=== PATIENT | male | born 1980 | race Caucasian/White ===

== ENCOUNTER 2016-12-01 09:41 | Emergency (ER) | payer OTHER ==
[~2016-12-01] VITALS: Ht 177.8 cm; Wt 89.8 kg
--- NOTE | 2016-12-01 09:50 | ED GENERAL ADULT ---
History of Present Illness General Chief Complaint: General Adult Stated Complaint: BIBA, R FLANK PAIN Source: patient Exam Limitations: no limitations Vital Signs & Intake/Output Vital Signs & Intake/Output Vital Signs Date Time Temp Pulse Resp B/P Pulse O2 O2 Flow FiO2 Ox Delivery Rate 12/01 1112 98.9 80 18 140/77 96 Room Air 12/01 0945 98.1 81 18 142/93 96 Room Air Allergies Coded Allergies: NO KNOWN ALLERGIES (07/30/11) Reconcile Medications Cyclobenzaprine HCl 10 MG TABLET 1 TAB PO TID PRN MUSCLE RELAXANT MAY CAUSE DROWSINESS Meloxicam (Mobic) 15 MG TABLET 1 TAB PO DAILY PRN PAIN/INFLAMMATION Tramadol HCl 50 MG TABLET 1-2 TAB PO Q6 PRN pain Triage Note: 36 Y/O MALE BIBA FROM WORK FOR EVAL OF R SIDED FLANK PAIN RADIATING INTO R GROIN AND R LEG; ONSET THIS AM WHILE AT WORK. STATES IT WAS "SUDDEN" ONSET AFTER "CLIMBING INTO A MACHINE". STATES HE VOIDED THIS AM AND DENIES NOTING HEMATURIA; FELT THOUGH HE EMPTIED HIS BLADDER. RECEIVED 2 DOSES MORPHINE [facility] - TOTAL OF 10MG MORPHINE EN ROUTE. C/O NAUSEA AFTER PAIN MEDICATION BUT DENIES NAUSEA PRIOR TO RECEIVING MEDS. AWAITING EVAL. Triage Nurses Notes Reviewed? yes HPI: Patient is a 36 year old male presents complaining of sharp low back pain onset while at work. Patient was using a machine and lifting 50 pounds when he had a sudden onset of right sharp low back pain that radiates into the right inguinal area and down the right anterior thigh. Pain is moderate at rest, severe with movement. Some improvement with morphine administered by EMS prior to arrival. Mild paresthesias in right anterior thigh since onset of pain. Patient had mild burning with urination after onset of symptoms. Denies fall, fevers, chills, incontinence, numbness in the rectal area. (DANIELLE DAMON,[place]) Past History Travel History Traveled to [place] past 21 day No Medical History Any Pertinent Medical History? see below for history Neurological: NONE EENT: NONE Cardiovascular: NONE Respiratory: NONE Gastrointestinal: HERNIA SURGERY Hepatic: NONE Renal: NONE Musculoskeletal: NONE Psychiatric: NONE Endocrine: NONE Blood Disorders: NONE Cancer(s): NONE FORMAL SERVICE WAITER/Reproductive: NONE Surgical History Surgical History: non-contributory Psychosocial History What is your primary language Colombian Tobacco Use: Quit >30 days ago Family History Hx Contributory? No (ERICA MATHEWS) Review of Systems Review of Systems Constitutional: Denies: chills, fever. EENTM: Reports: no symptoms. Respiratory: Reports: no symptoms. Cardiovascular: Reports: no symptoms. GI: Denies: abdominal pain, nausea, vomiting. Genitourinary: Reports: see HPI. Musculoskeletal: Reports: see HPI. Skin: Reports: no symptoms. Neurological/Psychological: Reports: paresthesia (right anterior thigh). Hematologic/Endocrine: Reports: no symptoms. Immunologic/Allergic: Reports: no symptoms. (ERICA MATHEWS) Physical Exam Physical Exam General Appearance: well developed/nourished, alert, awake Head: atraumatic, normal appearance Eyes: Bilateral: normal appearance, PERRL, EOMI. Ears, Nose, Throat: normal pharynx, normal ENT inspection, hearing grossly normal Neck: normal inspection, supple, full range of motion Respiratory: normal breath sounds, no respiratory distress, lungs clear Cardiovascular: regular rate/rhythm Peripheral Pulses: 2+ dorsalis pedis (R) Gastrointestinal: soft, non-tender, no palpable pulsatile masses Back: point tenderness right lumbar paraspinal muscles in the area of L3, Positive left straight leg raise at 30 degrees. Extremities: normal inspection, normal capillary refill, normal range of motion, no edema Neurologic/Psych: no motor/sensory deficits, awake, alert, oriented x 3, mild antalgic gait. Skin: intact, normal color, warm/dry Core Measures ACS in differential dx? No CVA/TIA Diagnosis: No Severe Sepsis Present: No Septic Shock Present: No (ERICA MATHEWS) Progress Differential Diagnoses I considered the following diagnoses in my evaluation of the patient: muscle strain, herniated disc, renal colic, UTI/pyelo, transverse myelitis, AAA Plan of Care: Orders Procedure Date/time Status URINALYSIS 12/01 0954 Complete Laboratory Tests 12/01/16 1004: Urine Color YEL, Urine Clarity CLEAR, Urine pH 6.0, Ur Specific [facility] 1.025, Urine Protein 30 H, Urine Ketones NEG, Urine Nitrite NEG, Urine Bilirubin NEG, Urine Urobilinogen 0.2, Ur Leukocyte Esterase NEG, Ur Microscopic SEDIMENT EXAMINED, Urine RBC RARE, Urine WBC RARE, Urine Hemoglobin NEG, Urine Glucose NEG 12/01/2016 10:34:06 AM: Patient reports moderate improvement after Toradol and Valium. Exam appears consistent with musculoskeletal etiology. Low suspicion renal colic given exam and no significant hematuria. Imaging deferred. (ERICA MATHEWS) Initial ED EKG: none (ERICA MATHEWS) Departure Departure Time of Disposition: 1105 Disposition: HOME OR SELF CARE Condition: Stable Clinical Impression Primary Impression: Lumbar spine strain Qualifiers: Encounter type: initial encounter Qualified Code: S39.012A - Strain of muscle, fascia and tendon of lower back, initial encounter Secondary Impressions: Lumbar radiculopathy, right Referrals: JOSEPH GODFREY,CASS Patel (PCP/Family) Additional Instructions: Rest, ice for 20 minutes 4-5 times a day for 2 days then switch to heat. Follow up with occupational medicine tomorrow, call today for appointment. Return to the ER if numbness in the rectal area, incontinence, increasing weakness or worsening of symptoms. 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 I have also reviewed all the pertinent lab results and diagnostic results. I agree with the findings and the plan of care as documented in the PA's/[employer] SUPERVISOR's documentation. [X] I have reviewed the ED Record and agree with the PA's/[employer] SUPERVISOR's documentation. [] Additions or exceptions (if any) to the PAs/[employer] SUPERVISOR's note and plan are summarized below: [] (GENARO MALDONADO DO) Critical Care Note Critical Care Note Critical Care Time: non-applicable (ERICA MATHEWS)
[2016-12-01] MEDS ORDERED: TRAMADOL HCL50 M1 PO (10:57)
[2016-12-01] MEDS ORDERED: MOBIC15 M1 PO (10:57)
[2016-12-01] MEDS ORDERED: CYCLOBENZAPRINE10 M1 PO (10:57)
[2016-12-01 11:12] VITALS: BP 140/77
== END 2016-12-01 11:13 ==
LOC: ERH 09:41
DX: S39.012A Strain of muscle, fascia and tendon of lower back, initial encounter (principal); M54.16 Radiculopathy, lumbar region; X58.XXXA Exposure to other specified factors, initial encounter; Y92.9 Unspecified place or not applicable; Y93.9 Activity, unspecified
CPT/HCPCS: 81001; 96374; 96375; J1885; J3360